=== PATIENT | female | born 1995 | race Hispanic/Latino ===

== ENCOUNTER 2024-12-09 08:58 | Emergency (ER) | payer SELFPAY ==
[~2024-12-09] VITALS: Ht 162.6 cm; Wt 129.3 kg
[2024-12-09 08:59] VITALS: BP 121/79; PULSE 90; RESP 20; TEMP 99.4
[2024-12-09] MEDS ORDERED: AMOX1TAB16 PO (09:06)
[2024-12-09] MEDS ORDERED: FLUT16H NS (09:06)
--- NOTE | 2024-12-09 09:06 | ERN ---
General Chief Complaint: Earache Stated Complaint: BILATERAL EARACHE AND FLULIKE SYMPTOMS Time Seen by MD: 09:00 Source: patient History of Present Illness Initial Comments PATIENT IS A 29-YEAR-OLD FEMALE COMING IN TO BE EVALUATED FOR BILATERAL EAR ADELITA N. PATIENT STATES THAT THE END OF THE OCTOBER CHILD WAS SICK WITH A INFLUENZA B. SHORTLY AFTER THE FAMILY MEMBERS THAT IS SICK WITH A INFLUENZA B WELL. PER PATIENT SHE STARTED GETTING SICK WELL TWO WEEKS AGO FALLING FEELING BETTER BUT COUPLE OF DAYS AGO SHE STARTED HAVING CONGESTION AND SINUS PRESSURE. Allergies: Coded Allergies: No Known Drug Allergies (Unverified Allergy, Unknown, 12/09/24) ROS Dictation CONSTITUTIONAL: NO CHILLS, NO FEVER, NO WEAKNESS, NO DIAPHORESIS, NO MALAISE. HEAD/FACE: NO SIGNS OF TRAUMA. EENT: NO EYE PAIN, NO BLURRED VISION, NO TEARING, NO DOUBLE VISION, EAR PAIN, NO EAR DISCHARGE, NO NOSE PAIN, NASAL CONGESTION, NO THROAT PAIN, NO THROAT SWELLING, NO MOUTH PAIN. RESPIRATORY: NO COUGH, NO ORTHOPNEA, NO SOB, NO STRIDOR, NO WHEEZING. CARDIOVASCULAR: NO CHEST PAIN, NO EDEMA, NO PALPITATIONS, NO SYNCOPE. GASTROINTESTINAL/ABDOMINAL: NO ABDOMINAL PAIN, NO CONSTIPATION, NO DIARRHEA, NO NAUSEA, NO VOMITING. GENITOURINARY: NO ABNORMAL DISCHARGE, NO DYSURIA, NO FREQUENT URINATION, NO HEMATURIA. NO COMPLAINTS OF PAIN IN THE GENITALS. MUSCULOSKELETAL: NO BACK PAIN, NO GOUT, NO JOINT PAIN, NO JOINT SWELLING, NO MUSCLE PAIN, NO MUSCLE STIFFNESS, NO NECK PAIN. INTEGUMENTARY: NO CHANGE IN COLOR, NO CHANGE IN HAIR/NAILS, NO DRYNESS, NO LESION, NO LUMPS, NO RASH. NEUROLOGICAL/PSYCH: NO ANXIETY, NOT DEPRESSED, NO EMOTIONAL PROBLEM, NO HEADACHE, NO NUMBNESS, NO PRE-EXISTING DEFICIT, NO HISTORY OF SEIZURES, NO TREMORS, NO WEAKNESS. HEMATOLOGIC/LYMPHATIC: NOT ANEMIC, NO HISTORY OF BLOOD CLOTS, NO APPARENT BLEEDING, NO BRUISING, GLANDS NOT SWOLLEN. ALL SYSTEMS NEGATIVE, EXCEPT NOTED. Physical Exam Physical Exam Dictation VITAL SIGNS: REVIEWED. GENERAL APPEARANCE: ALERT, ORIENTED X3, NO ACUTE DISTRESS, OBESE. HEAD AND FACE: NON-TRAUMATIC. EYES: PERRL, PINK CONJUNCTIVAS, EYELID NO TRAUMA, ANTERIOR CHAMBER CLEAR. EARS: PINNAS INTACT AND NO SIGNS OF TRAUMA OR ERYTHEMA. EAR CANALS CLEAR AND NO DISCHARGE. TMS ERYTHEMA. NOSE: NO DISCHARGE, NO BLEEDING. OROPHARYNX: MOUTH NORMAL, TEETH NO CARIES, TONGUE PINK. PHARYNX CLEAR, NO ERYTHEMA. TONSILS NO EXUDATES, NO ABSCESSES NOTED. MUCOUS MEMBRANE MOIST. NECK: SUPPLE, NON-TENDER, NO THYROMEGALY, NO MASSES, NO JVD, NO BRUITS. BREAST: DEFERRED. CHEST: NO TENDERNESS, NO CREPITUS, NO PARADOXICAL MOVEMENT, NO RETRACTIONS. LUNGS: CLEAR, WELL-VENTILATED, SYMMETRIC, NO RALES, NO WHEEZING, NO RHONCHI, NO STRIDOR, GOOD BREATH SOUNDS BILATERALLY. HEART: REGULAR RATE, REGULAR RHYTHM, NO MURMUR, NO GALLOPS. VASCULAR: NO PERIPHERAL EDEMA. ABDOMEN: SOFT, POSITIVE BOWEL SOUNDS, NONDISTENDED, NO GUARDING, NONTENDER, NO REBOUND, NO MASSES NO HEPATOMEGALY, NO SPLENOMEGALY, NO DIEGO'S SIGN, NO H ERNIAS. RECTAL: DEFERRED. GENITAL: DEFERRED. NEUROLOGICAL: NORMAL SPEECH, GROSS MOTOR FUNCTION INTACT, GROSS SENSORY FUNCTI ON INTACT. MUSCULOSKELETAL: NECK NONTENDER, FULL RANGE OF MOTION, BACK NONTENDER, FULL RANGE OF MOTION. EXTREMITIES: NONTENDER, FULL RANGE OF MOTION. SKIN: COLOR PINK, DRY, NO TURGOR, NO RASH, NO LACERATIONS, NO ABRASIONS, NO CONTUSIONS. LYMPHATICS: DEFERRED. Results Laboratory and Microbiology Labs Reviewed?: Yes MDM MDM: DIFFERENTIAL DIAGNOSIS: OTITIS MEDIA, SINUSITIS, RATIONALE: TESTS CONSIDERED AND ORDERED SECONDARY TO SHARED DECISION MAKING INCLUDE: PREVIOUS OUTSIDE RECORDS REVIEWED: OLD ER VISITS. RISK OF COMPLICATION AND/OR MORBIDITY OR MORTALITY OF PATIENT MANAGEMENT: NONE PATIENT IS A 29-YEAR-OLD FEMALE COMING IN TO BE EVALUATED FOR BILATERAL EAR PAIN. ON PHYSICAL EXAM BILATERAL TYMPANIC MEMBRANE ERYTHEMA SUGGESTIVE OF OTITIS MEDIA. PATIENT WILL BE DISCHARGED WITH THE CONDITION WITH THE [facility]. I DID ADVISED HER APPROPRIATE FOLLOW UP WITH PCP IN 1-2 DAYS FOR ONGOING MANAGEMENT. DX & DISP Disposition: Discharge Departure Impression: Primary Impression: Otitis media Additional Impression: Sinusitis Condition: Stable Scripts Fluticasone Propionate (Flonase Nasal [place]) 50 Mcg/Actuation [place] 2 SPRAY NS DAILY, #16 GM 0 Refills Prov: YEVGENIY MENDES MD 12/09/24 Amoxicillin/Potassium Clav (Amox Tr-K Clv 875-125 mg Tab) 875 Mg-125 Mg Tablet 1 TAB PO BID for 10 Days, #20 TAB 0 Refills Prov: YEVGENIY MENDES MD 12/09/24 Additional Instructions: FOLLOW-UP WITH PRIMARY CARE PROVIDER IN 1 TO 2 DAYS. TAKE MEDICATIONS DIRECTED HERE IN THE EMERGENCY ROOM. OKAY TO CONTINUE HOME MEDICATIONS UNLESS OTHERWISE DISCUSSED DURING YOUR VISIT IN THE EMERGENCY ROOM TODAY. RETURN TO YOUR NEAREST EMERGENCY ROOM IF SYMPTOMS WORSEN OR IF THERE IS NO IMPROVEMENT. CALL 911 IF YOU NEED IMMEDIATE ASSISTANCE. TAKE TYLENOL [id number] NEEDED AND IF NO CONTRAINDICATIONS ARE PRESENT. INCREASE ORAL HYDRATION. A WOUND CULTURE OR URINE CULTURE WAS ORDERED HERE IN THE EMERGENCY ROOM DEPARTMENT PLEASE FOLLOW-UP WITH PRIMARY CARE PROVIDER AND ADVISE THEM TO GET REPEAT PORTS FROM OUR FACILITY. IF YOU HAD ANY PAUL WRAP/SPLINTS THAT WERE APPLIED HERE, PLEASE DO NOT REMOVE THEM UNTIL YOU SEE YOUR PRIMARY CARE OR SPECIALTY. REFERRALS: Referrals: SELF,REFERRAL (PCP) TAYO OMALLEY MD Time of Disposition: 09:05 YEVGENIY MENDES MD December 09, 2024 09:06
== END 2024-12-09 09:20 | disposition home or self-care (01) ==
LOC: EDH 08:58
DX: H66.93 Otitis media, unspecified, bilateral (principal); J32.9 Chronic sinusitis, unspecified
CPT/HCPCS: 99283

== ENCOUNTER 2025-05-10 13:19 | Emergency (ER) | payer SELFPAY ==
[~2025-05-10] VITALS: Ht 162.6 cm; Wt 113.4 kg
[~2025-05-10 13:19] MED LIST: AMOX1TAB16 PO; FLUT16H NS
--- NOTE | 2025-05-10 13:41 | NUR ---
PENDING GFR, TEST RESULTS, IV SITE, & CONSENT FOR CT EXAM.
[2025-05-10 13:50] LABS: IMMATURE GRANULOCYTE ABSOLUTE 0.00 K/uL (0-1); NUCLEATED RED BLOOD CELLS 0.0 % (0.0-0.19); PLATELET COUNT (AUTO) 341 K/uL (130-400); RED BLOOD CELL COUNT(AUTO) 4.93 MIL/uL (4.00-5.50); RED CELL DISTRIBUTION WIDTH 18.0 % (11.0-15.5); WHITE BLOOD COUNT (AUTO) 4.7 K/uL (4.8-10.8)
[2025-05-10 14:00] LABS: CREATININE 0.7 mg/dL (0.5-1.0); GLOMERULAR FILTR. RATE CALC 120 mL/min (>90); GLUCOSE,RANDOM 106 mg/dL (70-105); SODIUM SERUM 141 mmol/L (136-145); UREA NITROGEN, BLOOD 13 mg/dL (7-18)
--- NOTE | 2025-05-10 14:01 | ERN ---
General Chief Complaint: Shortness of Breath Stated Complaint: SHORTNESS OF BREATH Time Seen by MD: 13:22 History of Present Illness Initial Comments 29F presents for epigastric pain and vomiting x 24 hours. Patient reports positional pain in the epigastrium, associated with multiple episodes of vomiting and dyspnea due to pain. The pain radiates into her lower chest. No fevers, diarrhea, or urinary symptoms. No URI symptoms. She's never had this type of pain before. Med hx: denies Social hx: denies Surgical hx: Allergies: Coded Allergies: No Known Drug Allergies (Unverified Allergy, Unknown, 12/09/24) Home Meds Active Scripts Fluticasone Propionate (Flonase Nasal [place]) 50 Mcg/Actuation [place], 2 SPRAY NS DAILY, #16 GM 0 Refills Prov:YEVGENIY MENDES MD 12/09/24 Amoxicillin/Potassium Clav (Amox Tr-K Clv 875-125 mg Tab) 875 Mg-125 Mg Tablet, 1 TAB PO BID for 10 Days, #20 TAB 0 Refills Prov:YEVGENIY MENDES MD 12/09/24 Past Medical History Past Medical History: No Pertinent History Past Surgical History: None ROS Dictation CONSTITUTIONAL: No chills, no fever, no weakness, no diaphoresis, no malaise. HEAD/FACE: No signs of trauma. EENT: No eye pain, no blurred vision, no tearing, no double vision, no ear pain, no ear discharge, no nose pain, no nasal congestion, no throat pain, no throat swelling, no mouth pain. RESPIRATORY: No cough, no orthopnea, no SOB, no stridor, no wheezing. CARDIOVASCULAR: No chest pain, no edema, no palpitations, no syncope. GASTROINTESTINAL/ABDOMINAL: Epigastric pain vomiting GENITOURINARY: No abnormal discharge, no dysuria, no frequent urination, no hematuria. No complaints of pain in the genitals. MUSCULOSKELETAL: No back pain, no gout, no joint pain, no joint swelling, no muscle pain, no muscle stiffness, no neck pain. INTEGUMENTARY: No change in color, no change in hair/nails, no dryness, no lesion, no lumps, no rash. NEUROLOGICAL/PSYCH: No anxiety, not depressed, no emotional problem, no headache, no numbness, no pre-existing deficit, no history of seizures, no tremors, no weakness. HEMATOLOGIC/LYMPHATIC: Not anemic, no history of blood clots, no apparent bleeding, no bruising, glands not swollen. All Systems Negative, Except as Noted. Physical Exam Physical Exam Dictation VITAL SIGNS: Reviewed. GENERAL APPEARANCE: Alert, oriented x3, no acute distress, obese. HEAD AND FACE: Non-traumatic. EYES: PERRL, pink conjunctivas, eyelid no trauma, anterior chamber clear. EARS: Pinnas intact and no signs of trauma or erythema. Ear canals clear and no discharge. TMs no erythema. NOSE: No discharge, no bleeding. OROPHARYNX: Mouth normal, teeth no caries, tongue pink. Pharynx clear, no erythema. Tonsils no exudates, no abscesses noted. Mucous membrane moist. NECK: Supple, non-tender, no thyromegaly, no masses, no JVD, no bruits. BREAST: Deferred. CHEST: No tenderness, no crepitus, no paradoxical movement, no retractions. LUNGS: Clear, well-ventilated, symmetric, no rales, no wheezing, no rhonchi, no stridor, good breath sounds bilaterally. HEART: Regular rate, regular rhythm, no murmur, no gallops. VASCULAR: No peripheral edema. ABDOMEN: Epigastric tenderness. RECTAL: Deferred. GENITAL: Deferred. NEUROLOGICAL: Normal speech, gross motor function intact, gross sensory function intact. MUSCULOSKELETAL: Neck nontender, full range of motion, back nontender, full range of motion. EXTREMITIES: Nontender, full range of motion. SKIN: Color pink, dry, no turgor, no rash, no lacerations, no abrasions, no contusions. LYMPHATICS: Deferred. Results Laboratory and Microbiology Lab and Micro Result Laboratory Tests Test 05/10/25 13:43 05/10/25 16:20 White Blood Count 4.7 K/uL (4.8-10.8) L Red Blood Count 4.93 MIL/uL (4.00-5.50) Hemoglobin 10.0 g/dL (12.0-16.0) L Hematocrit 34.0 % (36-48) L Mean Corpuscular Volume 69.0 fL (79-99) L Mean Corpuscular Hemoglobin 20.3 pg (27.0-33.0) L Mean Corpuscular Hemoglobin Concent 29.4 g/dL (32.0-36.0) L Red Cell Distribution Width 18.0 % (11.0-15.5) H Platelet Count 341 K/uL (130-400) Mean Platelet Volume 10.1 fL (7.5-10.5) Immature Granulocyte % (Auto) 0.0 % (0-1) Neutrophils (%) (Auto) 68.5 % (40.0-77.0) Lymphocytes (%) (Auto) 24.3 % (21.0-51.0) Monocytes (%) (Auto) 7.0 % (3.0-13.0) Eosinophils (%) (Auto) 0.0 % (0.0-8.0) Basophils (%) (Auto) 0.2 % (0.0-5.0) Neutrophils # (Auto) 3.2 K/uL (1.8-7.7) Lymphocytes # (Auto) 1.1 K/uL (1.0-4.8) Monocytes # (Auto) 0.3 K/uL (0.1-1.0) Eosinophils # (Auto) 0.00 K/uL (0.00-0.70) Basophils # (Auto) 0.01 K/uL (0.00-0.20) Absolute Immature Granulocyte (auto 0.00 K/uL (0-1) Nucleated Red Blood Cells 0.0 % (0.0-0.19) Red Blood Cell Morphology See comments D-Dimer Quantitative (PE/DVT) 1161 ng/mL (0-500) *H Sodium Level 141 mmol/L (136-145) Potassium Level 3.5 mmol/L (3.5-5.1) Chloride Level 104 mmol/L (101-111) Carbon Dioxide Level 24 mmol/L (21-32) Blood Urea Nitrogen 13 mg/dL (7-18) Creatinine 0.7 mg/dL (0.5-1.0) Glomerular Filtration Rate Calc 120 mL/min (>90) Random Glucose 106 mg/dL (70-105) H Total Calcium 8.7 mg/dL (8.5-10.1) Total Bilirubin 0.5 mg/dL (0.2-1.0) Direct Bilirubin 0.1 mg/dL (0.0-0.3) Aspartate Amino Transf (AST/SGOT) 18 U/L (10-37) Alanine Aminotransferase (ALT/SGPT) 25 U/L (12-78) Alkaline Phosphatase 90 U/L (50-136) Total Creatine Kinase 69 U/L (21-232) Troponin I High Sensitivity < 4.0 ng/L (4-50) L Total Protein 7.8 g/dL (6.0-8.3) Albumin 3.8 g/dL (3.5-5.0) Lipase 23 U/L (16-77) Human Chorionic Gonadotropin, Quant 0 mIU/mL (0-5) Urine Color LIGHT-YELLOW (YELLOW) Urine Appearance CLEAR (CLEAR) Urine pH 7.5 (5.0-8.0) Urine Specific Point OVER (1.001-1.031) Urine Protein NEGATIVE mg/dL (NEGATIVE) Urine Glucose (UA) NEGATIVE mg/dL (NEGATIVE) Urine Ketones NEGATIVE mg/dL (NEGATIVE) Urine Occult Blood LARGE (NEGATIVE) H Urine Nitrate NEGATIVE (NEGATIVE) Urine Bilirubin NEGATIVE mg/dL (NEGATIVE) Urine Urobilinogen 0.2 mg/dL (0.2-1.0) Urine Leukocyte Esterase 25 Myriam/uL (NEGATIVE) H Urine RBC >100 /HPF (0-1) H Urine WBC 11-25 /HPF (0-1) H Urine Squamous Epithelial Cells FEW /HPF (0-2) Urine Bacteria RARE /HPF (None Seen) MDM CC: abd pain, vomiting. Historian: patient Comorbidities: denies Limitations: uninsured Ddx: gastritis, dehydration, biliary disease, syncope, electrolyte abnormality, surgical pathology, syncope, ACS, PE, etc. EKG: NSR, rate 90, normal axis, good RWP, no STEMI. Independenly interpreted by me. VSS mild epigastric pain, otherwise clinical exam normal. Labs (independently interpreted by me): no leukocytosis, microcytic anemia, D- dimer elevated, chemistry normal, LFTs normal, lipase normal. troponin normal. HCG neg. UA blood, unremarkable. CXR neg abd US shows CBD 7mm, otherwise normal. Recommends correlation with LFTs which are normal. CT abd/pelv shows pelvic cyst, otherwise unremarkable. CTA due to elevated d-dimer and CP. CTA neg. Pelvic US shows cyst, no torsion. Treatment in ED: 1L LR, reglan, morphine IV. Re-evaluation: pain controlled, PO tolerant, non-toxic. No surgical pathology. No signs of SIRS or sepsis. Labs are all within normal limits. Imaging is all unremarkable. Low suspicion for any life threats. Possibly a gastritis. We will DC with the omeprazole recommend PCP follow up ED Course Orders Procedure Category Date Status Time Cardiac Panel LAB 05/10/25 Complete 13:28 Cbc With Differential LAB 05/10/25 Complete 13:28 Basic Metabolic Panel LAB 05/10/25 Complete 13:28 Hcg,Quantitative LAB 05/10/25 Complete 13:28 Urinalysis Profile LAB 05/10/25 Complete 13:28 12 Lead Ekg Tracing- EKG 05/10/25 Complete Technical 13:28 Chest 1vw RAD 05/10/25 Resulted 13:28 Lipase LAB 05/10/25 Complete 13:28 Hepatic Function Panel LAB 05/10/25 Complete 13:28 Lactated Ringers PHA 05/10/25 Complete 1000ml (Lactated 14:00 Metoclopramide 10 PHA 05/10/25 Complete Mg/2 Ml Vial (Reglan 1 14:00 Morphine 4mg Syg PHA 05/10/25 Complete (Morphine 4mg Syg) 14:00 Us Abdominal Ruq\Ltd US 05/10/25 Resulted 13:33 Ct Abdomen/Pelvis CT 05/10/25 Resulted W/Contrast 13:33 D-Dimer LAB 05/10/25 Complete 13:55 Iohexol (Omnipaque) PHA 05/10/25 Complete 14:19 Ct Chest Pe Protocol CT 05/10/25 Resulted Wwo Cont 14:39 Iohexol (Omnipaque) PHA 05/10/25 Complete 14:45 Us Pelvic Non-Ob US 05/10/25 Resulted Limited 14:58 Culture Urine DEX 05/10/25 In Process 16:33 Current Medications Medications (Trade) Dose Ordered Sig/Bashir Route PRN Reason Start Time Stop Time Status Last Admin Dose Admin Iohexol (Omnipaque) 75 ml STK-MED ONCE IV 05/10/25 14:19 05/10/25 14:19 DC Iohexol (Omnipaque) 75 ml STK-MED ONCE IV 05/10/25 14:45 05/10/25 14:45 DC Lactated Ringer's 1,000 ml @ 0 mls/hr ONCE ONCE IV 05/10/25 14:00 05/10/25 14:01 DC 05/10/25 14:02 Metoclopramide HCl (regLAN 10MG IV) 10 mg ONCE ONCE IVP 05/10/25 14:00 05/10/25 14:01 DC 05/10/25 14:00 Morphine Sulfate (morPHINE 4MG SYG) 4 mg ONCE ONCE IVP 05/10/25 14:00 05/10/25 14:01 DC 05/10/25 14:00 Vital Signs Date Time Temp Pulse Resp B/P (MAP) Pulse Ox O2 Delivery O2 Flow Rate FiO2 05/10/25 15:16 98.2 82 16 132/78 97 Room Air* 0 21 05/10/25 13:45 98.8 98 19 122/82 99 Room Air* 0 21 05/10/25 13:21 98.8 98 19 122/82 99 Room Air 0 DX & DISP Disposition: Discharge Departure Impression: Primary Impression: Gastritis Additional Impressions: Microcytic anemia, Adnexal cyst Condition: Stable Scripts Omeprazole (Omeprazole) 40 Mg Capsule.dr 1 CAP PO DAILY for 14 Days, #28 CAP 0 Refills Prov: CALLIE WILKERSON DO 05/10/25 Ondansetron (Ondansetron Odt) 4 Mg Tab.rapdis 1 TAB PO Q6HPRN PRN for nausea/vomiting for 3 Days, #10 TAB 0 Refills Prov: CALLIE WILKERSON DO 05/10/25 Additional Instructions: Your symptoms are consistent with gastritis. This is due to inflammation of the lining of the stomach. I've prescribed omeprazole. Take as prescribed. I've prescribed ondansetron dissolvable tabs. Take as needed to prevent vomiting. Avoid spicy food, large meals, eating late, coffee, and alcohol. Start with the BRAT (bananas, rice, applesauce, toast). Your labs show microcytic anemia, which is unlikely related to your symptoms. You can follow up with a primary doctor regarding this finding. The rest of your labwork is unremarkable. The CT scans of your chest, abdomen, and pelvis do not show any major abnormalities. You do have an ovarian cyst. This is unlikely related to your symptoms. If this causes problems in the future, you can follow up with an astronaut mission specialist. The ultrasounds are unremarkable. I recommend that you follow up with a primary doctor regarding your symptoms. Return to the ED as needed. Referrals: MIKE CORNEJO (PCP) CALLIE WILKERSON DO May 10, 2025 14:01
[2025-05-10] MEDS: LACTATED RINGERS 1000ML 1,000 ML IV ONE (14:02)
[2025-05-10 14:10] LABS: ASPARTATE AMINOTRANSFERASE 18 U/L (10-37); CREATINE KINASE, TOTAL 69 U/L (21-232); HCG,QUANTITATIVE 0 mIU/mL (0-5); TOTAL PROTEIN, SERUM 7.8 g/dL (6.0-8.3)
[2025-05-10] MEDS ORDERED: IOHEXOL-350 75 ML VIAL IV ONE ×2 (14:19→14:45)
--- NOTE | 2025-05-10 14:47 | HMCIMG ---
EXAM: CT Abdomen and Pelvis with IV contrast CLINICAL HISTORY: epigastric pain, vomiting TECHNIQUE: Axial computed tomography images of the abdomen and pelvis with intravenous contrast. CONTRAST: with intravenous contrast. COMPARISON: None provided. FINDINGS: LUNG BASES: The lung bases appear clear. No pleural effusions are seen. LIVER: Unremarkable. GALLBLADDER AND BILE DUCTS: The gallbladder appears within normal limits. No radioopaque gallstones are seen. No biliary ductal dilatation is evident. PANCREAS: Unremarkable. SPLEEN: Unremarkable. ADRENAL GLANDS: Unremarkable. KIDNEYS, URETERS, AND BLADDER: The kidneys appear within normal limits. There is no hydronephrosis or hydroureter. No urinary calculi are seen. STOMACH AND BOWEL: Unremarkable appearance of the stomach and bowel. No evidence of bowel obstruction. No evidence suggesting enteritis or colitis. APPENDIX: No evidence of acute appendicitis on CT examination. PERITONEUM: No free fluid. No free air. LYMPH NODES: No lymphadenopathy is evident. REPRODUCTIVE: 8.4 x 7.8 x 6.6 cm cystic lesion arising from pelvis which is likely ovarian in origin. Further evaluation with ultrasound is recommended. VASCULATURE: No evidence of abdominal aortic aneurysm. BONES: No aggressive appearing osseous lesion. No acute osseous pathology evident. IMPRESSION: 8.4 x 7.8 x 6.6 cm cystic lesion arising from pelvis which is likely ovarian in origin. Further evaluation with ultrasound is recommended. No acute intra-abdominal or pelvic abnormality. /[place]
--- NOTE | 2025-05-10 15:11 | HMCIMG ---
EXAM: CTA Chest with and without Intravenous Contrast for PE evaluation CLINICAL HISTORY: chest pain, syncope, elevated d-dimer TECHNIQUE: Axial CTA images of the chest with and without intravenous contrast using a pulmonary embolism protocol. Multiplanar reconstructed images were created and reviewed. CONTRAST: None. was administered without incident. COMPARISON: None provided. FINDINGS: PULMONARY ARTERIES: No evidence of central or segmental pulmonary embolism is seen. AORTA: There is no evidence for aneurysm or dissection of the thoracic aorta. LUNGS: The lungs appear clear. PLEURAL SPACES: No pneumothorax evident. No pleural effusions. HEART: Normal heart size. No significant pericardial effusion. LYMPH NODES: No lymphadenopathy is evident. BONES: No focal osseous abnormality or acute fracture. UPPER ABDOMEN: Images of the upper abdomen are unremarkable. IMPRESSION: No pulmonary embolus. No thoracic aortic aneurysm or dissection. No pulmonary infiltrates or pleural effusions. /[place]
--- NOTE | 2025-05-10 15:16 | HMCIMG ---
EXAM: US Abdomen, Right Upper Quadrant. CLINICAL HISTORY: epigastric pain, vomiting TECHNIQUE: Right upper quadrant sonography performed with image documentation. COMPARISON: None provided. FINDINGS: LIVER: Normal in caliber; right hepatic lobe measures 15.0 cm in the craniocaudal dimension. Hepatic steatosis. No mass or intrahepatic biliary ductal dilatation. Main portal vein hepatopetal flow is 17 cm/sec. GALLBLADDER: The gallbladder appears normal. No gallbladder wall thickening (2 mm) seen. No gallstones are evident. COMMON BILE DUCT: Measures 7 mm in dilation. PANCREAS: The visualized pancreas appears within normal limits. The distal pancreas is obscured by bowel gas. RIGHT KIDNEY: Measures 8.8 x 4.4 x 4.2 cm.Unremarkable. Normal renal contours. No renal mass or calculus. No hydronephrosis. IMPRESSION: 1. No acute intraabdominal findings. 2. Common bile duct mildly dilated at 7 mm. Recommend correlation with laboratory parameters, and if warranted recommend MR/MRCP for further evaluation. 3. Hepatic steatosis. /[place]
--- NOTE | 2025-05-10 15:41 | HMCIMG ---
EXAM: CR Chest, 1 View. CLINICAL HISTORY: chest pain COMPARISON: None provided. FINDINGS: LUNGS: The lungs show no infiltrate or other acute finding. PLEURAL SPACES: No pleural effusion or pneumothorax. MEDIASTINUM: The cardiomediastinal silhouette is within normal limits. BONES: No acute osseous abnormality. IMPRESSION: No acute cardiopulmonary pathology is evident. /[place]
[2025-05-10 16:29] LABS: APPEARANCE,URINE CLEAR (CLEAR); GLUCOSE, URINE (UA) NEGATIVE (NEGATIVE); LEUKOCYTE ESTERASE ,URINE 25 Leu/uL (NEGATIVE); NITRATE,URINE NEGATIVE (NEGATIVE); OCCULT BLOOD,URINE LARGE (NEGATIVE)
--- NOTE | 2025-05-10 16:30 | EKG ---
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
[2025-05-10 16:31] LABS: ADD UA MICROSCOPIC YES
[2025-05-10 16:32] LABS: SQUAMOUS EPITHELIAL CELL,UR FEW /HPF (0-2)
--- NOTE | 2025-05-10 17:20 | HMCIMG ---
EXAM: US Pelvis, Complete Transabdominal COMPARISON: CT dated 05/10 CLINICAL HISTORY: cystic lesion, r/o torsion TECHNIQUE: Transabdominal pelvic ultrasound (complete) with image documentation. FINDINGS: ENDOMETRIUM: Normal thickness (3 mm). UTERUS/CERVIX: The uterus appears within normal limits ( 9.4 x 3.4 x 6.3 cm ). No uterine fibroid or other mass evident. RIGHT OVARY: Measures 1.9 x 1 x 1.8 cm. Normal Doppler flow. No abnormal mass. 7.1 x 7.7 x 7.6 cm-sized well-defined anechoic cystic lesion in the right adnexal region. LEFT OVARY: Measures 2.5 x 1.6 x 2.6 cm. Normal Doppler flow. No abnormal mass. FREE FLUID: No free fluid. IMPRESSION: 1. 7.1 x 7.7 x 7.6 cm well-defined anechoic cyst in the right adnexal region. This may be an ovarian cyst, recommend contrast-enhanced MR imaging for further evaluation. 2. Normal Doppler flow to both ovaries. /[place]
[2025-05-10] MEDS ORDERED: ONDA-243 PO (17:25)
[2025-05-10] MEDS ORDERED: OMEP40CA21 PO (17:25)
[2025-05-10 18:05] VITALS: BP 124/76; PULSE 86; RESP 16; TEMP 97.8; O2SAT 97
== END 2025-05-10 18:03 | disposition home or self-care (01) ==
LOC: EDH 13:19
DX: K29.70 Gastritis, unspecified, without bleeding (principal); D50.9 Iron deficiency anemia, unspecified; L72.8 Other follicular cysts of the skin and subcutaneous tissue; R10.20 Pelvic and perineal pain unspecified side; K76.0 Fatty (change of) liver, not elsewhere classified; Z79.899 Other long term (current) drug therapy
CPT/HCPCS: 99285; 71270; 76705; 96374; 96361; 71045; 96375; 82550; 80076; 84484; 80048; 84702; 83690; 85025; 85378; 87086; 81001; 36415; 74177; 76857; 93005; J7120; J2270; J2765; Q9967 ×2